=== PATIENT | male | born 1945 | race Caucasian/White ===

== ENCOUNTER 2023-01-21 16:02 | Emergency (ER) | payer MEDICARE, MEDICAID ==
[~2023-01-21] VITALS: Ht 180.3 cm; Wt 90.0 kg
[~2023-01-21 16:02] MED LIST: BUDE10.24 IH; CITA20TA28 PO; OMEP-84 PO; OXCA150T14 PO; TIOT18CA7 IH
[2023-01-21 16:29] VITALS: BP 158/105
== END 2023-01-21 16:38 | disposition home or self-care (01) ==
LOC: ER 16:03
DX: S61.451D Open bite of right hand, subsequent encounter (principal); Z48.00 Encounter for change or removal of nonsurgical wound dressing; L03.113 Cellulitis of right upper limb; W50.3XXD Accidental bite by another person, subsequent encounter; Z79.899 Other long term (current) drug therapy
CPT/HCPCS: 99281